=== PATIENT | male | born 1980 | race Caucasian/White ===

== ENCOUNTER 2023-09-28 20:57 | Emergency (ER) | payer OTHER ==
[2023-09-28 21:14] VITALS: BP 111/63; PULSE 67; RESP 14; TEMP 97.5; BMI 26.6
[2023-09-28] MEDS ORDERED: IBUPROFEN 600 MG TABLET (FP) PO ONE (22:09)
[2023-09-28] MEDS ORDERED: ACETAMINOPHEN 500 MG TABLET (FP) ONE (22:09)
[2023-09-28] MEDS: ACETAMINOPHEN 500 MG TABLET (FP) PO ONE (22:13)
[2023-09-28] MEDS: IBUPROFEN 600 MG TABLET (FP) PO ONE (22:13)
[2023-09-28 22:27] LABS: PH,URINE 5.5 (5.0-8.0); URINE APPEARANCE CLEAR; URINE BILIRUBIN NEGATIVE (NEGATIVE); URINE COLOR YELLOW; URINE GLUCOSE (UA) NEGATIVE (NEGATIVE); URINE KETONE NEGATIVE (NEGATIVE); URINE LEUK ESTERASE NEGATIVE (NEGATIVE); URINE NITRITE NEGATIVE (NEGATIVE); URINE PROTEIN NEGATIVE (NEGATIVE); URINE UROBILINOGEN 0.2 mg/dL (0.2-1.0)
[2023-09-28] MEDS ORDERED: DOXYCYCLINE HYCLATE 100 MG CAPSULE PO ONE (23:23)
[2023-09-28] MEDS ORDERED: metroNIDAZOLE 250 MG TABLET ONE (23:24)
[2023-09-28] MEDS: DOXYCYCLINE HYCLATE 100 MG CAPSULE PO ONE (23:30)
[2023-09-28] MEDS: metroNIDAZOLE 250 MG TABLET PO ONE (23:30)
== END 2023-09-28 23:35 | disposition home or self-care (01) ==
LOC: JERFT 20:57
DX: N50.82 Scrotal pain (principal); R30.0 Dysuria; N50.811 Right testicular pain; N50.812 Left testicular pain
CPT/HCPCS: 36415; 76870-TC; 81003; 87086; 87491; 87591; 99284-25